=== PATIENT | female | born 1990 | race Caucasian/White ===

== ENCOUNTER → 2017-03-29 16:08 | Outpatient (CLI) | payer BC, SELFPAY ==
[2017-03-29 16:32] LABS: Basophils % 0.4 % (0.1-2.0); Eosinophils # 0.1 K/mm3 (0.0-0.4); Eosinophils % 0.8 % (0.1-12.0); Hematocrit 42.8 % (37.0-47.0); Hemoglobin 14.6 g/dL (12.2-16.2); Lymphocytes # 2.2 K/mm3 (0.7-4.5); Lymphocytes % 21.3 K/mm3 (10-50); Mean Corpuscular HGB Conc 34.2 g/dL (31.8-35.4); Mean Corpuscular Hemoglobin 29.1 pg (27.0-31.2); Mean Platelet Volume 7.3 fl (7.4-10.4); Monocytes # 0.3 K/mm3 (0.1-1.0); Monocytes % 3.3 % (1.7-9.3); Neutrophils # 7.5 K/mm3 (1.8-7.8); Neutrophils % 74.3 % (37.0-80.0); Platelet Count 244 K/mm3 (142-424); Red Blood Count 5.03 M/mm3 (4.20-5.40); Red Cell Distribution Width 12.4 % (11.5-17.5); White Blood Count 10.1 K/mm3 (4.8-10.8)
[2017-03-31 08:26] LABS: HIV Screen 4th Generation wRfx Non Reactive (Non Reactive); Rapid Plasma Reagin Ab Titer Non Reactive (NonRea<1:1)
[2017-03-31 12:14] LABS: Hepatitis B Surface Antigen Negative (Negative); Hepatitis C Antibody <0.1 s/co ratio (0.0-0.9); Rubella Antibodies, IgG 6.96 index (Immune >0.99)
== END ==
PROVIDERS: PCP Family Medicine; Visit Provider Nurse Practitioner Obstetrics & Gynecology
DX: Z34.90 Encounter for supervision of normal pregnancy, unspecified, unspecified trimester (principal)
CPT/HCPCS: 36415; 85025; 86592; 86703; 86762; 86850; 87340; 87380; G0432

== ENCOUNTER → 2017-04-07 14:49 | Outpatient (CLI) | payer BC, SELFPAY ==
--- NOTE | 2017-04-07 15:01 | US_ITS ---
US OB transvaginal HISTORY: Evaluate for early OB ultrasound, evaluate age ITS.REASON: US OB- Dates ORDERING PHYSICIAN: Clarke Covington MD PATIENT AGE: 27 years COMPARISON: None FINDINGS: An intrauterine gestational sac is present with a pole with a crown-rump length of 2.63cm correlating to gestational age of 9w3d. heart tones are present with an FHR of 160 bpm's. Yolk sac is noted. The amnion and chorion have not yet fused. Adnexa: 1.3 cm right ovarian cyst. There is a small amount fluid in the cul-de-sac.. IMPRESSION: Live intrauterine gestation at 9 weeks 3 days as described above. Estimated due date is 11/07/2017
== END ==
PROVIDERS: PCP Family Medicine; Visit Provider Nurse Practitioner Obstetrics & Gynecology
DX: O26.841 Uterine size-date discrepancy, first trimester (principal)
CPT/HCPCS: 76830

== ENCOUNTER → 2017-04-26 16:51 | Outpatient (REF) | payer BC, SELFPAY | LOC: LAB 16:51 | PROVIDERS: Visit Provider Nurse Practitioner Obstetrics & Gynecology | DX: N39.0 Urinary tract infection, site not specified (principal) | CPT/HCPCS: 87086; 87088; 87186 ==

== ENCOUNTER → 2017-06-27 13:40 | Outpatient (CLI) | payer BC, SELFPAY ==
--- NOTE | 2017-06-27 13:40 | US_ITS ---
US OB /maternal detail: INDICATION: ITS.REASON: US OB Complete ORDERING PHYSICIAN: Clarke Covington MD PATIENT AGE: 27 years TECHNIQUE: ultrasound transabdominal scanning. COMPARISON: No previous relevant studies. FINDINGS: Single viable intrauterine gestation. Breech position. Placenta: Posterior placenta grade 1. There is average amount fluid. The cervix appears satisfactory. Closed and measuring 3cm in length. Complete survey performed and was unremarkable on the submitted images as in PACS. No discrete anomalies identified on survey imaging by technologist. Active fetus. Three-vessel cord with satisfactory umbilical cord insertion. 4- chamber heart noted. Survey of brain & ventricles unremarkable. Face and neck survey unremarkable. Diaphragm and chest views unremarkable. Abdomen: Both kidneys noted and unremarkable. Stomach noted and satisfactory. Spine: Survey of the spine satisfactory with no anomalies identified nor imaged. Both arms and legs noted. Amniotic Fluid: Adequate. Maternal adnexa: No significant findings. Measurements: Average ultrasound age 20w5d. Gestational Age 21w2d. Estimated due date by ultrasound age 0911/09/2017. Estimated weight 385 grams. This is 25th percentile BPD = 20w0d OFD = 21w4d HC = 20w2d AC = 21w3d FL = 20w5d Heart Rate = 143 bpm Cerebellum = 20w2d Humerus = 20w5d HC/AC is 1.09 (1.06-1.25). CI is 71% (70-86%). FL/BPD is 73%. FL/AC is 21% (20-24%). IMPRESSION: There is a single live fetus present in breech presentation with an average ultrasound age of 20 weeks and 5 days. No obvious anomalies. All parameters correlate. Please see above for detail.
== END ==
PROVIDERS: PCP Family Medicine; Visit Provider Nurse Practitioner Obstetrics & Gynecology
DX: Z36.0 Encounter for antenatal screening for chromosomal anomalies (principal)
CPT/HCPCS: 76811

== ENCOUNTER 2017-09-07 15:27 | Outpatient (CLI) | payer BC, SELFPAY ==
[2017-09-07 15:35] VITALS: BP 138/86; PULSE 108; RESP 18; TEMP 36.6; O2SAT 99; BMI 38.7
[2017-09-07 15:59] LABS: Microscopic, Urine URINE MICROSCOPIC (MICROSCOPIC)
[2017-09-07 16:01] LABS: Appearance,Urine SL CLOUDY (Clear); Bilirubin,Urine Negative (Negative); Blood, Urine Negative (Negative); Color,Urine YELLOW (Yellow); Glucose,Urine (UA) Negative (Negative); Ketones,Urine Negative (Negative); Leukocyte Esterase,Urine 2+ (Negative); Nitrate,Urine Negative (Negative); Protein,Urine Negative (Negative); Specific Gravity, Urine >= 1.030 (1.005-1.030); Urobilinogen,Urine 0.2 EU/dl (0.2)
[2017-09-07 16:11] LABS: Bacteria,Urine 2+ /lpf
[2017-09-07 16:34] LABS: Fetal Fibronectin (Rapid) Negative (Negative)
--- NOTE | 2017-09-07 17:43 | HMH.ACPN2 ---
Internal Medicine - PN: Subj *Date: 09/07/17 *Time: 17:43 Interval history: She is a 27-year-old 2 para 1 who is 31 and 4 weeks gestational age. She has been treated for a urinary tract infection and came in with dehydration and a few contractions. Exam Vital signs and Labs for Last 24 Hours: Temp Pulse Resp BP Pulse Ox 97.9 F 108 H 18 138/86 99 09/07/17 15:35 09/07/17 15:35 09/07/17 15:35 09/07/17 15:35 09/07/17 15:35 Laboratory Results - last 24 hr 09/07/17 15:40: Urine Color Yellow, Urine Appearance Sl cloudy, Urine pH 6.0, Ur Specific [place] >= 1.030, Urine Protein Negative, Urine Glucose (UA) Negative, Urine Ketones Negative, Urine Blood Negative, Urine Nitrate Negative, Urine Bilirubin Negative, Urine Urobilinogen 0.2, Ur Leukocyte Esterase 2+ A, Urine RBC None, Urine WBC 10-20, Ur Squamous Epith Cells 10-20, Urine Bacteria 2+ 09/07/17 15:48: Fibronectin Negative I & O for Last 24 hours: Intake & Output 09/05/17 09/06/17 09/07/17 09/08/17 11:59 11:59 11:59 11:59 Weight 218 lb 5.992 oz - Constitutional no acute distress Assessment and Plan (1) Urinary tract infection affecting Current visit: Yes Status: Acute Category: Medical Code(s): O23.40 - Unspecified infection of urinary tract in , unspecified trimester (2) False labor before 37 completed weeks of gestation Current visit: Yes Status: Acute Category: Medical Code(s): O47.00 - False labor before 37 completed weeks of gestation, unspecified trimester - Assessment and plan all Dx Assessment and Plan for all problems:: We have given her IV fluids as well as betamethasone because she had some contractions. She will continue with her antibiotics for her urinary tract infection. She will continue to push fluids. She will return tomorrow for a repeat shot of betamethasone. Her cervix is long and closed.
== END 2017-09-07 17:45 | disposition home or self-care (01) ==
LOC: OBOUT 15:29 → OB 15:29
PROVIDERS: PCP Family Medicine; Visit Provider Nurse Practitioner Obstetrics & Gynecology
DX: O26.93 Pregnancy related conditions, unspecified, third trimester (principal); Z3A.31 31 weeks gestation of pregnancy; R10.2 Pelvic and perineal pain; R10.31 Right lower quadrant pain
CPT/HCPCS: 59025; 81001; 82731; 87086; 96360; 96372

== ENCOUNTER 2017-09-08 16:42 | Outpatient (CLI) | payer BC, SELFPAY | END 2017-09-08 17:15 | disposition home or self-care (01) | LOC: OBOUT 16:44 → OB 16:44 | PROVIDERS: PCP Family Medicine; Visit Provider Obstetrics & Gynecology | DX: O26.93 Pregnancy related conditions, unspecified, third trimester (principal); Z3A.31 31 weeks gestation of pregnancy; R10.2 Pelvic and perineal pain; R10.31 Right lower quadrant pain | CPT/HCPCS: 96372 ==

== ENCOUNTER → 2017-09-12 13:31 | Outpatient (REF) | payer BC, SELFPAY | LOC: LAB 13:31 | PROVIDERS: PCP Family Medicine; Visit Provider Obstetrics & Gynecology | DX: N39.0 Urinary tract infection, site not specified (principal); Z34.90 Encounter for supervision of normal pregnancy, unspecified, unspecified trimester | CPT/HCPCS: 87086 ==

== ENCOUNTER → 2017-09-13 09:57 | Outpatient (CLI) | payer BC, SELFPAY ==
[2017-09-13 11:18] LABS: Creatinine,Serum 0.61 mg/dL (0.55-1.02)
[2017-09-13 12:20] LABS: Creatinine,Urine Random 54 mg/dL (20-320); Total Protein,Urine Random 13.3 mg/dL (0.0-11.9)
[2017-09-13 15:38] LABS: Collection Time,Urine 24 hours; Creatinine 24 Hour,Urine 1134 mg/24hr (630-2500); Creatinine Clearance Urine 129.1 mL/min (25-115); Total Protein 24 Hour,Urine 279 mg/24 hr (40-90); Total Volume,Urine 2100 mL (600-1600)
== END ==
PROVIDERS: Visit Provider Obstetrics & Gynecology
DX: Z34.90 Encounter for supervision of normal pregnancy, unspecified, unspecified trimester (principal); N39.0 Urinary tract infection, site not specified
CPT/HCPCS: 82575; 84155

== ENCOUNTER → 2017-09-18 12:36 | Outpatient (CLI) | payer BC, SELFPAY ==
--- NOTE | 2017-09-18 12:50 | US_ITS ---
US OB biophysical profile: Indication: ITS.REASON: US OB BPP Growth- Hypertension during ORDERING PHYSICIAN: Adali Hwang MD PATIENT AGE: 27 years FINDINGS: There is a single live fetus present in breech presentation. heart and body motion noted. breathing motion noted. The following parameters are obtained: Average ultrasound age is 34w0d. Estimated due date by ultrasound is 10/30/2017. Estimated weight is 2483g. This is a 85 percentile based on established due date of 11/05/2017 BPD: 33w4d OFD: 32w2d HC: 32w4d AC: 36w1d FL: 33w2d heart rate: 133 bpm. HC/AC: 0.92 (0.96-1.11) Cephalic index: 80% (70-86%) FL/BPD: 77% (71-87%) FL/AC: 20% (20-24%) Amniotic fluid index: 14 cm Qualitative AFV: 2 breathing movements: 2 Gross body movements: 2 Tone: 2 Biophysical profile score: 8/8 Doppler evaluation of the umbilical artery: SD ratio: 2.7 Resistive index: 0.62 No obvious anomalies evident. Placenta: Posterior Grade 1 Cervix: Appears closed and measures 3 cm IMPRESSION: Single live fetus in presentation with an average ultrasound age of 34 weeks 0 days. Biophysical profile 8/8 Doppler evaluation of the umbilical artery is unremarkable Abdominal circumference is slightly elevated. All other parameters correlate. Please see above for details
== END ==
PROVIDERS: PCP Family Medicine; Visit Provider Obstetrics & Gynecology
DX: O16.9 Unspecified maternal hypertension, unspecified trimester (principal)
CPT/HCPCS: 76816; 76819; 76820

== ENCOUNTER → 2017-09-20 08:19 | Outpatient (CLI) | payer BC, SELFPAY ==
[2017-09-20 10:59] LABS: Basophils % 0.2 % (0.1-2.0); Eosinophils % 0.4 % (0.1-12.0); Hematocrit 35.9 % (37.0-47.0); Hemoglobin 11.7 g/dL (12.2-16.2); Lymphocytes # 1.6 K/mm3 (0.7-4.5); Lymphocytes % 14.5 K/mm3 (10-50); Mean Corpuscular HGB Conc 32.6 g/dL (31.8-35.4); Mean Corpuscular Hemoglobin 27.7 pg (27.0-31.2); Mean Corpuscular Volume 84.8 fl (81-99); Mean Platelet Volume 7.7 fl (7.4-10.4); Monocytes # 0.5 K/mm3 (0.1-1.0); Monocytes % 4.2 % (1.7-9.3); Neutrophils # 8.9 K/mm3 (1.8-7.8); Neutrophils % 80.6 % (37.0-80.0); Platelet Count 214 K/mm3 (142-424); Red Blood Count 4.24 M/mm3 (4.20-5.40); Red Cell Distribution Width 13.9 % (11.5-17.5)
[2017-09-20 11:36] LABS: Alanine Aminotransferase 31 U/L (12-78); Albumin Level 2.5 gm/dL (3.4-5.0); Albumin/Globulin Ratio 0.6 (1.1-1.8); Alkaline Phosphatase 125 U/L (46-116); Anion Gap 13.9 mEq/L (5-15); Bilirubin,Total 0.2 mg/dL (0.2-1.0); Blood Urea Nitrogen 8 mg/dL (7-18); Calcium 8.5 mg/dL (8.5-10.1); Carbon Dioxide 23 mmol/L (21.0-32.0); Chloride 105 mmol/L (98-107); Creatinine,Serum 0.64 mg/dL (0.55-1.02); Estimated Glomerular Filt Rate 112 ml/min (>60); GFR (African American) 136 ML/MIN (>60); Globulin 4.1 gm/dl (1.3-3.2); Glucose 115 mg/dL (74-106); Sodium 138 mmol/L (136-145); Total Protein,Serum 6.6 gm/dL (6.4-8.2)
[2017-09-20 11:38] LABS: Aspartate Amino Transferase 16 U/L (15-37); Potassium 3.9 mmoL/L (3.5-5.1)
[2017-09-20 15:21] LABS: Collection Time,Urine 24 hours; Creatinine 24 Hour,Urine 1242 mg/24hr (630-2500); Creatinine,Urine Random 46 mg/dL (20-320); Total Volume,Urine 2700 mL (600-1600)
[2017-09-20 15:22] LABS: Creatinine Clearance Urine 134.8 mL/min (25-115); Total Protein 24 Hour,Urine 213 mg/24 hr (40-90); Total Protein,Urine Random 7.9 mg/dL (0.0-11.9)
== END ==
PROVIDERS: PCP Family Medicine; Visit Provider Obstetrics & Gynecology
DX: Z34.90 Encounter for supervision of normal pregnancy, unspecified, unspecified trimester (principal)
CPT/HCPCS: 36415; 80053; 82575; 84155; 84550; 85025

== ENCOUNTER 2017-09-28 14:56 | Outpatient (CLI) | payer BC, SELFPAY ==
[2017-09-28 15:08] VITALS: BMI 40.5
[2017-09-28 15:19] VITALS: BP 128/77; PULSE 88; RESP 18; TEMP 36.7; O2SAT 100; BMI 40.5
[2017-09-28 15:39] LABS: Basophils % 0.2 % (0.1-2.0); Eosinophils # 0.1 K/mm3 (0.0-0.4); Eosinophils % 0.4 % (0.1-12.0); Hematocrit 34.8 % (37.0-47.0); Hemoglobin 11.7 g/dL (12.2-16.2); Lymphocytes # 1.6 K/mm3 (0.7-4.5); Lymphocytes % 14.8 K/mm3 (10-50); Mean Corpuscular HGB Conc 33.6 g/dL (31.8-35.4); Mean Corpuscular Hemoglobin 27.8 pg (27.0-31.2); Mean Corpuscular Volume 82.6 fl (81-99); Mean Platelet Volume 7.8 fl (7.4-10.4); Monocytes # 0.4 K/mm3 (0.1-1.0); Monocytes % 3.9 % (1.7-9.3); Neutrophils # 8.7 K/mm3 (1.8-7.8); Neutrophils % 80.7 % (37.0-80.0); Platelet Count 207 K/mm3 (142-424); Red Blood Count 4.21 M/mm3 (4.20-5.40); Red Cell Distribution Width 13.6 % (11.5-17.5); White Blood Count 10.8 K/mm3 (4.8-10.8)
[2017-09-28 15:50] LABS: Alanine Aminotransferase 31 U/L (12-78); Albumin Level 2.4 gm/dL (3.4-5.0); Albumin/Globulin Ratio 0.5 (1.1-1.8); Alkaline Phosphatase 132 U/L (46-116); Anion Gap 13.6 mEq/L (5-15); Aspartate Amino Transferase 11 U/L (15-37); Bilirubin,Total 0.2 mg/dL (0.2-1.0); Blood Urea Nitrogen 6 mg/dL (7-18); Calcium 8.9 mg/dL (8.5-10.1); Carbon Dioxide 24 mmol/L (21.0-32.0); Chloride 105 mmol/L (98-107); Creatinine Clearance Estimated 218 mL/min (0-300); Creatinine,Serum 0.64 mg/dL (0.55-1.02); Estimated Glomerular Filt Rate 112 ml/min (>60); GFR (African American) 136 ML/MIN (>60); Globulin 4.9 gm/dl (1.3-3.2); Glucose 75 mg/dL (74-106); Potassium 3.6 mmoL/L (3.5-5.1); Sodium 139 mmol/L (136-145); Total Protein,Serum 7.3 gm/dL (6.4-8.2); Uric Acid 2.9 mg/dL (2.6-7.2)
[2017-09-28 15:51] LABS: Activated Partial Thrombo Time 31.1 seconds (23.6-34.0); Fibrinogen 500 mg/dL (204-500); INR 0.88 (0.9-1.1); Prothrombin Time 9.1 seconds (9.4-11.8)
[2017-09-28 16:00] LABS: D-Dimer 986 ng/mL (0-400)
== END 2017-09-28 16:55 | disposition home or self-care (01) ==
LOC: OBOUT 14:58 → OB 14:58
PROVIDERS: PCP Family Medicine; Visit Provider Obstetrics & Gynecology
DX: O13.3 Gestational [pregnancy-induced] hypertension without significant proteinuria, third trimester (principal); Z3A.34 34 weeks gestation of pregnancy
CPT/HCPCS: 80048; 80053; 84450; 84460; 84550; 85025; 85378; 85384; 85610; 85730

== ENCOUNTER → 2017-09-29 17:41 | Outpatient (CLI) | payer BC, SELFPAY ==
[2017-09-29 20:28] LABS: Total Protein,Urine Random 12.9 mg/dL (0.0-11.9)
[2017-09-29 20:29] LABS: Total Protein 24 Hour,Urine 335 mg/24 hr (40-90); Total Volume,Urine 2600 mL (600-1600)
== END ==
PROVIDERS: Visit Provider Obstetrics & Gynecology
DX: O13.3 Gestational [pregnancy-induced] hypertension without significant proteinuria, third trimester (principal); Z3A.34 34 weeks gestation of pregnancy
CPT/HCPCS: 84155

== ENCOUNTER → 2017-10-02 16:47 | Outpatient (REF) | payer BC, SELFPAY | LOC: LAB 16:47 | PROVIDERS: Visit Provider Nurse Practitioner Obstetrics & Gynecology | DX: Z34.90 Encounter for supervision of normal pregnancy, unspecified, unspecified trimester (principal) | CPT/HCPCS: 86403 ==

== ENCOUNTER → 2017-10-03 08:07 | Outpatient (CLI) | payer BC, SELFPAY ==
--- NOTE | 2017-10-03 08:08 | US_ITS ---
US OB biophysical profile: Indication: ITS.REASON: US OB BPP GROWTH- Pre-eclampsia during ORDERING PHYSICIAN: Adali Hwang MD PATIENT AGE: 27 years COMPARISON: 09/18/2017 FINDINGS: Single live fetus is present in cephalic presentation. heart tones are present with an FHR 1 22 bpm. motion and breathing activity noted. The following parameters are obtained: Average ultrasound age is 35w2d. Estimated due date by ultrasound is 11/05/2017. Estimated weight is 2589 grams. This is 42nd percentile based on established due date of 11/05/2017 BPD: 35w4d OFD: 35w3d HC: 35w0d AC: 35w1d FL: 35w1d heart rate: 123 bpm. HC/AC: 1.00 (0.93-1.11) Cephalic index: 80% (70-86%) FL/BPD: 78% (71-87%) FL/AC: 22% (20-24%) Amniotic fluid index: 15 cm Qualitative AFV: 2 breathing movements: 2 Gross body movements: 2 Tone: 2 Biophysical profile score: 8/8 Doppler evaluation of the umbilical artery: SD ratio: 2.6 Resistive index: 0.62 No obvious anomalies evident. Placenta: Fundal and posterior in implantation and grade 1 Cervix: Appears closed and measures Measurement IMPRESSION: Intrauterine gestation which is in cephalic presentation with an average ultrasound age of 35 weeks and 2 days. Adequate progression. Biophysical profile 8 of a with average amniotic fluid volume an unremarkable Doppler evaluation of the umbilical artery.
== END ==
PROVIDERS: PCP Family Medicine; Visit Provider Obstetrics & Gynecology
DX: O14.90 Unspecified pre-eclampsia, unspecified trimester (principal)
CPT/HCPCS: 76819

== ENCOUNTER 2017-10-18 04:56 | Inpatient (IN) ==
[2017-10-18 05:45] LABS: Basophils % 0.3 % (0.1-2.0); Eosinophils # 0.1 K/mm3 (0.0-0.4); Eosinophils % 0.5 % (0.1-12.0); Hematocrit 32.9 % (37.0-47.0); Hemoglobin 10.8 g/dL (12.2-16.2); Lymphocytes # 1.8 K/mm3 (0.7-4.5); Lymphocytes % 15.8 K/mm3 (10-50); Mean Corpuscular HGB Conc 32.8 g/dL (31.8-35.4); Mean Corpuscular Hemoglobin 26.7 pg (27.0-31.2); Mean Corpuscular Volume 81.3 fl (81-99); Mean Platelet Volume 8.5 fl (7.4-10.4); Monocytes # 0.6 K/mm3 (0.1-1.0); Neutrophils # 8.8 K/mm3 (1.8-7.8); Neutrophils % 78.4 % (37.0-80.0); Platelet Count 240 K/mm3 (142-424); Red Blood Count 4.05 M/mm3 (4.20-5.40); Red Cell Distribution Width 13.8 % (11.5-17.5); White Blood Count 11.3 K/mm3 (4.8-10.8)
[2017-10-18 06:03] LABS: Anion Gap 14.8 mEq/L (5-15); Calcium 8.8 mg/dL (8.5-10.1); Potassium 3.8 mmoL/L (3.5-5.1); Uric Acid 3.6 mg/dL (2.6-7.2)
[2017-10-18 06:04] LABS: Microscopic, Urine URINE MICROSCOPIC (MICROSCOPIC)
[2017-10-18 06:05] VITALS: BP 125/76
[2017-10-18 06:16] LABS: Appearance,Urine CLEAR (Clear); Bilirubin,Urine Negative (Negative); Blood, Urine Negative (Negative); Color,Urine YELLOW (Yellow); Glucose,Urine (UA) Negative (Negative); Ketones,Urine Negative (Negative); Leukocyte Esterase,Urine 3+ (Negative); Protein,Urine Negative (Negative); Urobilinogen,Urine 0.2 EU/dl (0.2)
[2017-10-18 06:18] LABS: Bacteria,Urine 1+ /lpf
[2017-10-18 06:47] LABS: INR 0.92 (0.9-1.1); Prothrombin Time 9.5 seconds (9.4-11.8)
--- NOTE | 2017-10-18 17:13 | History & Physical Report ---
OB - H&P: HPI Antepartum - History of Present Illness Chief complaint: Induction of Labor History of present illness: 37 3/ with mild preeclampsia Has been treated with labetalol 100mg BID with overall stability of BP 24 hour urine protein increased substantially to over 300mg in a 2 week period of time and she was advised for delivery after 37 wks Antepartum testing of fetus has been reassuring with normal growth, CHRISTIAN, NST, BPP and UA doppler studies - History of Present Criteria for establishing EDC:: LMP confirmed by 1st trimester US care: good care Ultrasounds: normal 1st trimester US, normal mid trimester US Obstetrical complications: preeclampsia [facility] History I have reviewed the patient's past medical history: Yes Medical History: Denies:: Depression, Hypertension, Seizures Other Surgeries: No: Amputation: No Fractures: No - *Social History Smoking Status: Never smoker Alcohol Intake: never Substance Use Type: denies use - Psychiatric History Pschychiatric History:: Denies:: Depression *Family Hx:: Cancer, Diabetes, Heart Attack, Thyroid Disorder, Stroke, Kidney Disease, Hypertension, Hyperlipidemia Para: 1 Review of Systems - Review of Systems Review of systems:: pertinent systems reviewed and negative unless documented below - Constitutional Denies chills, Denies fever(s) - Eyes Denies blurry vision, Denies double vision, Denies floaters - ENT Denies bleeding gums, Denies headache(s) - *Cardiovascular Denies chest pain, Denies shortness of breath, Denies fast heart rate - *Respiratory Denies cough, Denies shortness of breath - *Gastrointestinal Denies abdominal pain, Denies nausea, Denies vomiting - *Genitourinary Denies abnormal vaginal bleeding - *Musculoskeletal Denies back pain - Integumentary/Breasts Denies lesions, Denies rash - *Neurologic Denies headache(s), Denies numbness, Denies other visual disturbances, Denies seizure-like activity - Psychiatric Denies anxiety, Denies depression - Hematologic/Lymphatic Denies easy bleeding, Denies easy bruising Meds Home Medications Medication Instructions Recorded Confirmed Type Ferrous Sulfate 325 mg PO ONCE 09/28/17 10/18/17 History Vit Calc,Iron,Folic [Kpn] 1 tab PO QHS 09/28/17 10/18/17 History Labetalol HCl [Normodyne 100mg 100 mg PO BID 10/18/17 10/18/17 History tablet] Allergies Allergy/AdvReac Type Severity Reaction Status Date / Time Sulfa (Sulfonamide Allergy Intermediate I-HIVES Verified 10/17/17 09:53 Antibiotics) OB - H&P: Exam - Physical Exam Vital signs: Temp Pulse Resp BP Pulse Ox 98.1 F 116 H 18 125/76 97 10/18/17 06:02 10/18/17 06:02 10/18/17 06:02 10/18/17 06:02 10/18/17 06:02 - Constitutional no acute distress, cooperative - Routine HEENT Exam Head: Present: normocephalic, atraumatic Eye: Absent: conjunctival icterus, scleral injection - Routine Respiratory Exam Present: CTA bilaterally. Absent: respiratory distress - Routine Cardiovascular Exam Present: RRR. Absent: tachycardia - Routine Abdominal Exam Present: soft. Absent: tenderness, distended, guarding - Routine Exam External: Present: normal urethra appearance. Absent: vulvar erythema Perineal: Absent: erythema, tenderness Comments: Cervix 3/50/-2 - Routine Extremities Exam Present: edema (1+) - Routine Skin Exam Present: dry, warm. Absent: rash - Routine Neurological Exam Present: alert, oriented X3, normal reflexes - Routine Psychiatric Exam Absent: depressed, anxious - Detailed Labor and Delivery Exam Dilation (cm): 3 Effacement (%): 50 Cervix position: mid station: -2 Consistency: soft Membranes: artificially ruptured (AROM with copious clear fluid) Amniotic fluid: clear Baseline heart rate: 140 monitor accelerations: Present monitor decelerations: None intermediate school teacher variability: Moderate (11-25) Contraction frequency (min): 3 Contraction intensity: Mild OB - Results - Labs Labs: Short CBC 10/18/17 Range/Units 05:30 WBC 11.3 H (4.8-10.8) K/mm3 Hgb 10.8 L (12.2-16.2) g/dL Hct 32.9 L (37.0-47.0) % Plt Count 240 (142-424) K/mm3 BMP 10/18/17 05:30 Sodium 139 Potassium 3.8 Chloride 106 Carbon Dioxide 22 BUN 10 Creatinine 0.83 Glucose 113 H Calcium 8.8 Liver Function 10/18/17 Range/Units 05:30 AST 14 L (15-37) U/L ALT 48 (12-78) U/L Urine 10/18/17 Range/Units 05:10 Urine Color Yellow (Yellow) Urine Appearance Clear (Clear) Urine pH 6.0 (5.0-8.5) Ur Specific [place] 1.010 (1.005-1.030) Urine Protein Negative (Negative) Urine Glucose (UA) Negative (Negative) - Imaging and Cardiology nst Status: image reviewed by me (baseline 140, moderate variability, reactive. Category 1 heart tracing.) OB - A/P Antepartum (1) with 37 weeks completed gestation Current visit: Yes Status: Acute (2) Encounter for induction of labor Current visit: Yes Status: Acute (3) Mild pre-eclampsia Problem details: 09/29 24hr urine: 335mg protein Current visit: No Status: Acute (4) Hypertension complicating Current visit: No Status: Acute (5) Obesity affecting in third trimester Current visit: Yes Status: Acute (6) Anemia affecting in third trimester Problem details: hgb 11.7 Current visit: No Status: Acute - Additional Plan Additional Information:: Induction of labor Pitocin augmentation Continuous monitoring Declines epidural at present time with plans for NCB, but may receive epi at any time per request Continue monitoring BP
--- NOTE | 2017-10-18 17:35 | Procedure Note ---
- Delivery Note Delivery Date:: 10/18/17 Delivery Time:: 17:27 Anesthesia Type: None Was labor medically induced?: Yes Induction method: per pitocin protocol Gestational age (weeks): 37 Infant delivered prior to 39 weeks?: Yes Justification for early elective delivery:: Pre-eclampsia Gender: Male at 1 minute: 8 at 5 minutes: 9 LAC or MLE?: LAC Delivery Procedure:: Spontaneous vaginal delivery of vigorous liveborn male over intact perineum. Apgars 8 & 9 Delivery uncomplicated, with no nuchal cord or shoulder dystocia noted No other complications Infant placed immediately on maternal abdomen for nursing assessment & SIMEON immediately after umbilical cord clamped/cut Placenta spontaneously expressed and examined; noted to be complete/intact Vulva, vagina, and cervix inspected; 2nd degree laceration noted Repair with vicryl suture in layers/standard fashion EBL: 300cc All sponge/needle/instrument counts correct at conclusion of procedure Disposition: Mom/baby stable to recovery in LDRP Laceration:: vaginal (1st degree) Placental Delivery Description: Spontaneous
[2017-10-19 07:10] LABS: Hematocrit 28.7 % (37.0-47.0); Hemoglobin 9.6 g/dL (12.2-16.2)
--- NOTE | 2017-10-20 13:56 | Progress Note ---
Internal Medicine - PN: Subj *Date: 10/19/17 *Time: 12:30 Interval history: POD #1 No complaints Ambulating, voiding and tolerating reg diet lochia appropriate Exam Vital signs and Labs for Last 24 Hours: Temp Pulse Resp BP Pulse Ox 98.1 F 116 H 18 125/76 97 10/18/17 06:02 10/18/17 06:02 10/18/17 06:02 10/18/17 06:02 10/18/17 06:02 I & O for Last 24 hours: Intake & Output 10/18/17 10/19/17 10/20/17 10/21/17 11:59 11:59 11:59 11:59 Weight 236 lb 4 oz Microbiology Reports for the Last 24 Hours: Microbiology 10/18/17 05:10 Urine,Clean Catch Urine Culture - Final NO GROWTH AFTER 48 HOURS - Constitutional no acute distress - *Routine Respiratory Exam Absent: decreased breath sounds, respiratory distress - *Routine Abdominal Exam Present: soft. Absent: tenderness, distended - Routine Psychiatric Exam Present: normal affect. Absent: depressed, anxious Assessment and Plan (1) with 37 weeks completed gestation Current visit: Yes Status: Acute Category: Medical Code(s): Z3A.37 - 37 weeks gestation of (2) Encounter for induction of labor Current visit: Yes Status: Acute Category: Medical Code(s): Z34.90 - Encounter for supervision of normal , unspecified, unspecified trimester (3) Mild pre-eclampsia Problem details: 09/29 24hr urine: 335mg protein Current visit: No Status: Acute Qualifiers: Trimester: third trimester Qualified Code(s): O14.03 - Mild to moderate pre-eclampsia, third trimester Category: Medical Code(s): O14.00 - Mild to moderate pre-eclampsia, unspecified trimester (4) Hypertension complicating Current visit: No Status: Acute Category: Medical Code(s): O16.9 - Unspecified maternal hypertension, unspecified trimester (5) Obesity affecting in third trimester Current visit: Yes Status: Acute Category: Medical Code(s): O99.213 - Obesity complicating , third trimester (6) Anemia affecting in third trimester Problem details: hgb 11.7 Current visit: No Status: Acute Category: Medical Code(s): O99.013 - Anemia complicating , third trimester (7) Normal vaginal delivery Current visit: Yes Status: Acute Category: Medical Code(s): O80 - Encounter for full-term uncomplicated delivery - Assessment and plan all Dx Assessment and Plan for all problems:: Routine care anticipate discharge tomorrow
--- NOTE | 2017-10-20 14:09 | Discharge Summary ---
General - General Admission date:: 10/18/17 Discharge date: 10/20/17 HPI HPI: IOL for preeclampsia at 37 3/7 weeks Normal course normal without complications Discharged home on PPD #2 Hospital Course Hospital Course: per HPI Objective Vital signs: Temp Pulse Resp BP Pulse Ox 98.1 F 116 H 18 125/76 97 10/18/17 06:02 10/18/17 06:02 10/18/17 06:02 10/18/17 06:02 10/18/17 06:02 no acute distress - *Routine Respiratory Exam Absent: respiratory distress - *Routine Abdominal Exam Present: soft. Absent: tenderness, distended - *Routine Skin Exam Absent: rash - Routine Psychiatric Exam Present: normal affect. Absent: depressed, anxious DS: Diagnosis - Discharge Diagnosis (1) with 37 weeks completed gestation Status: Acute (2) Encounter for induction of labor Status: Acute (3) Mild pre-eclampsia Status: Acute Problem details: 09/29 24hr urine: 335mg protein (4) Hypertension complicating Status: Acute (5) Obesity affecting in third trimester Status: Acute (6) Anemia affecting in third trimester Status: Acute Problem details: hgb 11.7 (7) Normal vaginal delivery Status: Acute Discharge Plan - Patient Discharge Instructions ACTIVITY: Continue current activity DIET: regular diet Patient Instructions: Depression, Hemorrhage, Post Discharge Instructions - Follow up Plan Disposition: Home, Self-Detention Medications: Home Medications Medication Instructions Recorded Confirmed Type Ferrous Sulfate 325 mg PO DAILY 09/28/17 10/19/17 History Vit Calc,Iron,Folic [Kpn] 1 tab PO HS 09/28/17 10/19/17 History Labetalol HCl [Normodyne 100mg 100 mg PO BID 10/18/17 10/18/17 History tablet] Prescriptions/Medication Reconciliation: New Ibuprofen [Motrin 400mg tablet] 800 mg PO Q4HP PRN tablet PRN Reason: Mild To Moderate Pain Continue Ferrous Sulfate 325 mg PO DAILY Vit Calc,Iron,Folic [Kpn] 1 tab PO HS Discontinued Labetalol HCl [Normodyne 100mg tablet] 100 mg PO BID
== END 2017-10-20 15:10 | disposition home or self-care (01) ==
LOC: OB 05:02
PROVIDERS: ADMIT Obstetrics & Gynecology; ATTEND Obstetrics & Gynecology

== ENCOUNTER → 2021-05-24 10:54 | Outpatient (CLI) | payer BC, SELFPAY ==
--- NOTE | 2021-05-24 10:59 | XR_ITS ---
FINAL REPORT CLINICAL HISTORY: RIGHT KNEE PAIN, popping sound FINDINGS: 3 views of the right knee were obtained. There are postoperative changes from prior anterior cruciate ligament repair. There is no acute fracture or dislocation. There is mild narrowing of the medial compartment joint space. There is no soft tissue abnormality. IMPRESSION: No acute process. Reviewed, Interpreted and Dictated by Jack Carlson MD Transcribed by Jose Alberto Curry Authenticated by Jack Carlson MD on 05/24/2021 12:52:36 PM [facility]
== END ==
PROVIDERS: PCP Family Medicine; Visit Provider Nurse Practitioner Family
DX: M25.561 Pain in right knee (principal)
CPT/HCPCS: 73562

== ENCOUNTER → 2021-05-31 09:32 | Outpatient (CLI) | payer BC, SELFPAY ==
--- NOTE | 2021-05-31 09:37 | MR_ITS ---
FINAL REPORT CLINICAL HISTORY: KNEE PAIN, RT. prior hx 4 knee surgeries last one 2014. knee popped x1wk ago. knee instability. anterior knee pain. FINDINGS: Multiplanar MR imaging of the right knee was performed without contrast. There is artifact from extensive postoperative changes which obscures much of the detail. There is been prior partial medial meniscectomy without convincing tear. ACL graft appears intact. The medial collateral ligament and lateral ligamentous complex are intact. The patellar and quadriceps tendons are intact. There is no evidence of fracture. There are postoperative changes of the patella. No focal abnormality is identified of the articular cartilage. A small joint effusion is seen. The musculature is intact. No soft tissue mass or cyst is identified. IMPRESSION: Extensive postoperative changes without convincing acute injury. Reviewed, Interpreted and Dictated by Greyson Doran III, MD Transcribed by Joseline Calvin Authenticated by Greyson Doran III, MD on 05/31/2021 11:41:43 AM [facility]
== END ==
PROVIDERS: PCP Family Medicine; Visit Provider Nurse Practitioner Family
DX: M25.561 Pain in right knee (principal)
CPT/HCPCS: 73721

== ENCOUNTER 2021-07-14 16:00 | Outpatient (RCR) | payer BC, SELFPAY | END 2021-08-26 14:52 | disposition home or self-care (01) | LOC: PT.CARL 16:00 | PROVIDERS: PCP Family Medicine; Visit Provider Orthopaedic Surgery | DX: M25.561 Pain in right knee (principal) | CPT/HCPCS: 97010; 97014; 97033; 97110; 97112; 97163; 97530; G0283 ==

== ENCOUNTER → 2022-03-28 14:49 | Outpatient (CLI) | payer BC, SELFPAY ==
--- NOTE | 2022-03-28 14:50 | US_ITS ---
FINAL REPORT TECHNIQUE: Sonographic images of the pelvis were obtained transvaginally. CLINICAL HISTORY: post coital bleeding FINDINGS: The uterus is anteverted and retroflexed. It measures 8.2 x 4.8 x 5.5 cm. The endometrial stripe measures 8 mm which is within normal limits. The myometrium is homogeneous. There is a small nabothian cyst in the cervix. The right ovary measures 3.8 x 2.9 x 1.9 cm. It is normal in appearance. The left ovary measures 3.9 x 1.7 x 1.5 cm. It is normal in appearance. Color imaging to the ovaries is within normal limits. There is no free fluid. IMPRESSION: Normal sonographic appearance to the uterus and ovaries for age. Reviewed, Interpreted and Dictated by Yulissa Kuo MD Transcribed by Marianela Loredo Authenticated and . [facility]
== END ==
PROVIDERS: PCP Family Medicine; Visit Provider Obstetrics & Gynecology
DX: N93.0 Postcoital and contact bleeding (principal)
CPT/HCPCS: 76830

== ENCOUNTER 2024-05-28 10:12 | Outpatient (CLI) | payer BC, SELFPAY | END 2024-05-28 23:59 | disposition home or self-care (01) | LOC: LAB.DROPOF 05-29 10:12 | PROVIDERS: PCP Nurse Practitioner Family; Visit Provider Nurse Practitioner Family | DX: N39.0 Urinary tract infection, site not specified (principal); B96.29 Other Escherichia coli [E. coli] as the cause of diseases classified elsewhere | CPT/HCPCS: 87086; 87088; 87186 ==

== ENCOUNTER 2024-10-29 15:32 | Outpatient (CLI) | payer BC, SELFPAY ==
--- OUTSIDE RECORDS SUMMARY | 2024-10-29 15:34 | XMS_ITS | Clinical Summary ---
Author Organization [facility] Address [address] [place] [id number] Phone [email or web address] Care Team Providers Care Prosthetic Makeup Designer Name Role Phone Provider, No Primary Care Provider Unavailabl e Allergies Active Allergy Reactions Criticality Noted Date Comments Amoxicillin Rash Low 06/09/2021 Sulfa Antibiotics 09/11/2017 Medications No known medications Active Problems Problem Noted Date Diagnosed Date Follow-up examination, following other surgery 0 06/12/2015 Overview (07/12/2017): Health examination of defined subpopulation 07/15 Overview (07/12/2017): Social History Tobacco Use Types Packs/Day Years Used Date Smoking Tobacco: Never Smokeless Tobacco: Never Intimate Partner Violence Answer Date R ecorded Insults You Not on file 05/26/2020 Threatens You Not on file 05/26/2020 Screams at You Not on file 05/26/2020 Physically Hurt Not on file 05/26/2020 Intimate Partner Violence Score Not on file 05/26/2020 Depression Answer Date Recorded PHQ Total Score 0 11/27/2021 Stress Answer Date Recorded Stress in your Life Not on file 12/18/2023 Dealing with Stress 3 12/18/2023 Comments Unknown Sex and Gender Information Value Date Recorded Sex Assigned at Not on file Legal Sex Female 7:51 AM CDT Gender Identity Not on file Sexual Orientation Not on file Last Filed Vital Signs Vital Sign Reading Time Taken Comments Blood Pressure 130/82 06/11/2021 5:38 AM EDT Pulse 79 06/11/2021 5:38 AM EDT Temperature 36.9 C (98.5 F) 06/11/2021 5:38 AM EDT Respiratory Rate 14 06/11/2021 5:38 AM EDT Oxygen Saturation 98% 06/11/2021 5:38 AM EDT Inhaled Oxygen Concentration - - Weight 95.3 kg (210 lb) 03/28/2018 11:46 AM EST Height 162.6 cm (5' 4 ) 03/28/2018 11:46 AM EST Body Mass Index 36.05 03/28/2018 11:46 AM EST Plan of Treatment Health Maintenance Due Date Last Done Comments Cervical Cancer Screening Combo 1991 Dental Cleaning/Exam 1991 HIV Screening 1991 HPV / Cotest 1991 Hepatitis C Screening 1991 Pap Testing 1991 HPV Immunization (1 - 2-dose series) 2002 Annual Preventive Exam 2009 Hep B Infection Screening - Triple Screen 2009 Hepatitis B Immunization (1 of 3 - 19+ 3-dose series) 2010 Tetanus Diphtheria and Pertu ssis Immunization (1 - Tdap) 2010 Covid-19 Immunization (1 - 2 024-25 season) 2024 Influenza Immunization (#1) 2024 HIB Immunization Aged Out No longer e ligible based on patient's age to complete this topic Hepatitis A Immunization Aged Out No longer eligible based on patient's age to complete this topic Pneumococcal: Ped (0 to 5 Yr s) and At-Risk Member (6 to 64 Yrs) Aged Out No longer e ligible based on patient's age to complete this topic Polio Immunization Aged Out No longer eligible based on patient's age to complete this topic Varicella Immunization Aged Out No lo nger eligible based on patient's age to complete this topic Insurance KUL[place]EP [place] 5 Care Teams Prosthetic Makeup Designer Relationship Specialty Start Date End Date Provider, [place] [address] PCP - General Pool Coordinator 06/09/21
--- OUTSIDE RECORDS SUMMARY | 2024-10-29 15:35 | XMS_ITS | Patient Health Record ---
[facility] [address] [facility] [address] [facility] [address] [place] [id number] Care Team Providers Care Physical Therapy Manager Name Role Phone Humberto Patton Primary Care Provider Allergies Allergen (clinical drug ingredient) Drug/Non Drug Allergy documented on EMR Reaction Allergy Type Onset Date Status Substance with sulfonamide structure and antibacterial mechanism of action (substance) Sulfa Antibiotics Unknown Drug Allergy Active Medications Medication SIG (Take, Route, Frequency, Duration) Notes Start Date End Date Status Ventolin HFA 108 (90 Base) MCG/ACT 2 puff(s) inhaled 4 times a day; Duration: 30 day(s) 12/22/2018 Not-Taking Immunizations Vaccine Route Administration Date Status Comme nts xGardasil IM Intramuscular 08/24/2006 Administered xGardasil IM Intramuscular 12/11/2006 Administered xGardasil IM Intramuscular 05/12/2007 Administered tuberculin (ppd) ID Intradermal 07/10/2009 Administered Plan Of Treatment No Information Insurance Providers Payer Name Payer Address Payer Phone Subscriber Number Group Number Insured Name Patient Relationship to Insured Coverage Start Date Coverage End Date [employer] [address] [place] [address] [id number] MARCELINO LIM Self - patient is the insured Medications Administered Medication Instructions Date of Administration Dosage Notes Rocephin 500 mg 06/10/2006 1000 mg Medical (General) History Medical History History ICD Code UTI interstitial cystitis Surgical History Surgery Date(Month/Year) urethral dilatations Hospitalization History Reason Date(Month/Year) UTI 02/08/06-02/11 child 10/31/2013
--- OUTSIDE RECORDS SUMMARY | 2024-10-29 15:35 | XMS_ITS | Clinical Summary ---
Author Organization Healthcare Address [address] [place] [address] Care Team Providers Care Bridge Expert Name Role Phone Humberto Patton MD Primary Care Provider + [phone] Allergies Active Allergy Reactions Criticality Noted Date Comments Amoxicillin Rash Low 06/09/2021 Sulfa Drugs Unknown - Patient st ates they do not know rxn details Low 12/22/2014 Medications No known medications Family History Medical History Relation Name Comments Heart Problem Father Heart Problem Mother Relation Name Status Comments Father Mother Social History Tobacco Use Types Packs/Day Years Used Date Smoking Tobacco: Never Comments Unknown Sex and Gender Information Value Date Recorded Sex Assigned at Not on file Legal Sex Female 7:34 PM EDT Gender Identity Not on file Sexual Orientation Not on file Last Filed Vital Signs Vital Sign Reading Time Taken Comments Blood Pressure 137/87 06/07/2021 10:10 AM EDT Pulse 76 08/09/2021 9:31 AM EDT Temperature - - Respiratory Rate - - Oxygen Saturation 99% 08/09/2021 9:31 AM EDT Inhaled Oxygen Concentration - - Weight 86.2 kg (190 lb) 08/09/2021 9:31 AM EDT Height 160 cm (5' 3 ) 08/09/2021 9:31 AM EDT Body Mass Index 33.66 08/09/2021 9:31 AM EDT Plan of Treatment Health Maintenance Due Date Last Done Comments [facility]-Depression Screening 1991 [facility]-/Child/Adol SDOH Screenings 1991 [facility]-Varicella Vaccines (1 of 2 - 13+ 2-dose series) 2004 [facility]- SDOH Screenings 2009 [facility]-Adult SDOH Screenings 2009 [facility]-DTaP,Tdap,and Td Vaccine s (1 - Tdap) 2010 [facility]-Hepatitis B Vaccines (1 of 3 - 19+ 3-dose series) 2010 [facility]-Pap Smear 2012 HPV Vaccines (1 - 3-dose SCD M series) 2018 [facility]-Cervical Cancer Screening 2021 [facility]-HPV/Cotest 2021 [id number] Vaccine (1 - 20 24-25 season) 2024 [facility]-Influenza Vaccine (#1) 2024 [facility]-Zoster Vaccines (1 of 2) 2041 [facility]-HIB Vaccines Aged Out No longer e ligible based on patient's age to complete this topic [facility]-Hepatitis A Vaccines Aged Out No longer eligible based on patient's age to complete this topic [facility]-IPV Vaccines Aged Out No longer e ligible based on patient's age to complete this topic [facility]-Pneumococcal Vaccine: Pediatrics (0 to 5 Years) and At-Risk Patients (6 to 49 Years) Aged Out No long er eligible based on patient's age to complete this topic [facility]-Rotavirus Vaccines Aged Out No lo nger eligible based on patient's age to complete this topic Insurance [employer] Care Teams Bridge Expert Relationship Specialty Start Date End Date Humberto Patton MD [address] [facility] [address] [id number] [facility] - General 06/26/20
== END 2024-10-29 23:59 | disposition home or self-care (01) ==
LOC: LAB 15:32
PROVIDERS: PCP Family Medicine; Visit Provider Obstetrics & Gynecology
DX: Z34.90 Encounter for supervision of normal pregnancy, unspecified, unspecified trimester (principal); N92.6 Irregular menstruation, unspecified; Z3A.00 Weeks of gestation of pregnancy not specified
CPT/HCPCS: 36415; 84144; 84702

== ENCOUNTER 2024-11-12 14:00 | Outpatient (CLI) | payer BC, SELFPAY ==
--- OUTSIDE RECORDS SUMMARY | 2024-11-13 10:02 | XMS_ITS | Patient Health Record ---
[facility] Address [address] [facility] [address] [facility] [address] [place] [id number] Care Team Providers Care Lab Tester Name Role Phone Humberto Patton Primary Care [...] Vaccine Route Administration Date Status Comme nts tuberculin (ppd) ID Intradermal 07/10/2009 Administered xGardasil IM Intramuscular 08/24/2006 Administered xGardasil IM Intramuscular 12/11/2006 Administered xGardasil IM Intramuscular 05/12/2007 Administered Plan Of Treatment No Information Insurance Providers Payer Name Payer Address Payer Phone Subscriber Number Group Number Insured Name Patient Relationship to Insured Coverage Start Date Coverage End Date [employer] [address] [place] [address] [id number] MARCELINO LIM Self - patient is the insured Medications Administered Medication Instructions Date of Administration Dosage Notes Rocephin 500 mg 06/10/2006 1000 mg Medical (General) History Medical History History ICD Code UTI interstitial cystitis Surgical History Surgery Date(Month/Year) urethral dilatations Hospitalization History Reason Date(Month/Year) UTI 02/08/06-02/11 child 10/31/2013
--- OUTSIDE RECORDS SUMMARY | 2024-11-13 10:02 | XMS_ITS | Clinical Summary ---
Author Organization [facility] Address [address] [place] [address] Care Team Providers Care Bulk Sealer Name Role Phone Humberto Patton MD Primary Care Provider + [phone] Allergies Active Allergy Reactions Criticality Noted Date [...] 2018 [facility]-Cervical Cancer Screening 2021 [facility]-HPV/Cotest 2021 [id number] Vaccine (1 - 20 24-25 season) 2024 [...] complete this topic Insurance KUL[employer]EP Care Teams Bulk Sealer Relationship Specialty Start Date End Date Humberto Patton MD [address] [facility] [address] [place] [id number] [facility] - General 06/26/20
--- OUTSIDE RECORDS SUMMARY | 2024-11-13 10:02 | XMS_ITS | Clinical Summary ---
Author Organization [facility] Address [address] [place] [id number] Phone [email or web address] Care Team Providers Care Residential Manager Name Role Phone Provider, No Primary Care [...] on patient's age to complete this topic Pneumococcal Immunization Aged Out No longer eligible based on patient's age to complete this topic Polio Immunization Aged Out No longer eligible based on patient's age to complete this topic Varicella Immunization Aged Out No lo nger eligible based on patient's age to complete this topic Insurance [facility] [place] [address] Care Teams Residential Manager Relationship Specialty Start Date End Date Provider, [place] [address] PCP - General Numerical Control Drill Press Operator 06/09/21
== END 2024-11-12 23:59 ==
LOC: LAB.DROPOF 11-13 09:43
PROVIDERS: PCP Obstetrics & Gynecology; Visit Provider Obstetrics & Gynecology
DX: O09.291 Supervision of pregnancy with other poor reproductive or obstetric history, first trimester (principal); Z3A.00 Weeks of gestation of pregnancy not specified
CPT/HCPCS: 82570; 84156; 87086; 87088

== ENCOUNTER 2024-11-22 08:16 | Outpatient (CLI) | payer BC, SELFPAY ==
--- OUTSIDE RECORDS SUMMARY | 2024-11-22 08:19 | XMS_ITS | Clinical Summary ---
Author Organization Healthcare Address [address] [place] [address] Care Team Providers Care Cereal Maker Name Role Phone Humberto Patton MD Primary Care Provider + [phone] Allergies Active Allergy Reactions Criticality Noted Date [...] Date Last Done Comments [facility]-Depression Screening 1991 [facility]-Infant/Child/Adol SDOH Screenings 1991 [facility]-Varicella Vaccines (1 of 2 - 13+ 2-dose series) 2004 [facility]- SDOH Screenings 2009 [facility]-Adult SDOH Screenings 2009 [facility]-DTaP,Tdap,and Td Vaccine s (1 - Tdap) 2010 [facility]-Hepatitis B Vaccines (1 of 3 - 19+ 3-dose series) 2010 [facility]-Pap Smear 2012 HPV Vaccines (1 - 3-dose SCD M series) 2018 [facility]-Cervical Cancer Screening 2021 [facility]-HPV/Cotest 2021 [id number] Vaccine (1 - 20 24-25 season) 2024 [...] complete this topic Insurance K[employer]EP Care Teams Cereal Maker Relationship Specialty Start Date End Date Humberto Patton MD [address] [facility] [address] [address] [id number] [facility] - General 06/26/20
[2024-11-22 08:47] LABS: Hematocrit 37.5 % (37.0-47.0); Hemoglobin 12.1 g/dL (12.2-16.2); Immature Granulocytes % 0.4 %; Mean Corpuscular HGB Conc 32.3 g/dL (31.8-35.4); Mean Corpuscular Hemoglobin 26.7 pg (27.0-31.2); Mean Corpuscular Volume 82.8 fl (81-99); Nucleated Red Blood Cells % 0 %; Platelet Count 252 K/mm3 (142-424); Red Blood Count 4.53 M/mm3 (4.20-5.40); Red Cell Distribution Width-SD 41.5 fL; White Blood Count 7.9 K/mm3 (4.8-10.8)
[2024-11-22 09:29] LABS: Albumin Level 4.0 g/dl (3.5-5.0); Chloride 102 mmol/L (98-107); Potassium 4.0 mmoL/L (3.5-5.1); Sodium 138 mmol/L (136-145)
[2024-11-22 09:32] LABS: Alanine Aminotransferase 15 U/L (12-78); Alkaline Phosphatase 76 U/L (38-126); Aspartate Amino Transferase 16 U/L (14-36); Bilirubin,Total 0.3 mg/dl (0.2-1.3); Carbon Dioxide 27 mmol/L (22.0-30.0)
[2024-11-22 09:33] LABS: Albumin/Globulin Ratio 1.1 (1.1-1.8); Calcium 9.8 mg/dl (8.4-10.2); Globulin 3.5 g/dL (1.3-3.2); Glucose 87 mg/dl (74-100); Total Protein,Serum 7.5 g/dl (6.3-8.2)
[2024-11-22 09:37] LABS: Anion Gap 15.1 mEq/L (5-15); Blood Urea Nitrogen 8 mg/dl (7-17); Creatinine,Serum 0.70 mg/dl (0.52-1.04); Estimated Glomerular Filt Rate 96 ml/min (>60); GFR (African American) 117 ML/MIN (>60)
[2024-11-22 15:14] LABS: RPR W/RFX Titers Nonreactive (Nonreactive)
[2024-11-22 19:42] LABS: Hepatitis C Ab Qual. W/ RFX NEGATIVE (Negative)
[2024-11-23 07:40] LABS: Hepatitis B Surface Antigen Negative (Negative)
[2024-11-23 08:13] LABS: Rubella Antibodies, IgG 4.70 index (Immune >0.99)
== END 2024-11-22 23:59 | disposition home or self-care (01) ==
LOC: LAB 08:17
PROVIDERS: PCP Family Medicine; Visit Provider Obstetrics & Gynecology
DX: O09.299 Supervision of pregnancy with other poor reproductive or obstetric history, unspecified trimester (principal); Z3A.00 Weeks of gestation of pregnancy not specified
CPT/HCPCS: 36415; 80053; 85025; 86592; 86762; 86803; 86850; 87340; 87389

== ENCOUNTER 2025-02-10 12:44 | Outpatient (CLI) | payer BC, SELFPAY ==
--- OUTSIDE RECORDS SUMMARY | 2025-02-10 12:50 | XMS_ITS | Clinical Summary ---
Author Organization [facility] Address [address] [place] [address] Care Team Providers Care Geophysics Scientist Name Role Phone Humberto Patton MD Primary Care Provider [phone] Allergies Active Allergy Reactions Criticality Noted Date [...] 19+ 3-dose series) 2010 [facility]-Pap Smear 2012 [facility]-Cervical Cancer Screening 2021 [facility]-HPV/Cotest 2021 [id number] Vaccine (1 - 20 25-26 season) 2024 [facility]-Influenza Vaccine (#1) 2024 [facility]-Zoster Vaccines (1 of 2) 2041 HPV Vaccines (No Doses Required) Completed [facility]-HIB Vaccines Aged Out No longer e [...] patient's age to complete this topic Insurance [facility] Care Teams Geophysics Scientist Relationship Specialty [place] [id number] PCP - General 06/26/20
--- OUTSIDE RECORDS SUMMARY | 2025-02-10 12:50 | XMS_ITS | Encounter Summary ---
Author Organization [facility] Address [address] [place] [phone] Phone [email or web address] Care Team Providers Care Franchise Manager Name Role Phone Provider, No Primary Care Provider Unavailabl e Encounter Details Date Type Department Care Team (Late st Contact Info) Description 12/17/2024 Telephone [facility] [address] [place] [address] Vero Mortensen MA [address] [place] [address] Social History Tobacco Use Types Packs/Day Years [...] file 12/18/2023 Dealing with Stress 3 12/18/2023 Estimated Date of Delivery Comme nts Yes 06/26/2025 Sex and Gender Information Value Date Recorded Sex Assigned at Not on file Legal Sex Female 7:51 AM CDT Gender Identity Not on file Sexual Orientation Not on file documented as of this encounter Miscellaneous Notes * Telephone Encounter - Vero Mortensen MA - 12/17/2024 5:54 AM EST TMs GL- Humberto Almazan called concerning TMs restrictions of Push/Pull, discussed with Jonathan Ferguson RN and reported back to GL that TM had the rest of this week 12.16.2024 to have no push/pull restriction then beginning next week the 2nd trimester restrictions of NO PUSH/PULL will take affect. 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
--- OUTSIDE RECORDS SUMMARY | 2025-02-10 12:50 | XMS_ITS | Clinical Summary ---
Author Organization [facility] Address [address] [place] [phone] Phone [email or web address] Care Team Providers Care Automotive Drivability Technician Name Role Phone Provider, No Primary Care Provider Unavailabl e Allergies Active Allergy Reactions Criticality Noted Date Comments Amoxicillin Rash Low 06/09/2021 Sulfa Antibiotics 09/11/2017 Medications Progesterone 200 MG capsule TAKE 1 CAPSULE VAGINALLY AT BEDTIME NIGHTLY 5 Active Active Problems Problem Noted Date Diagnosed Date Follow-up examination, following other surgery 0 06/12/2015 Overview (07/12/2017): Health examination of defined subpopulation 07/15 Overview (07/12/2017): Estimated Date of Delivery Comme nts Yes 06/26/2025 Encounters Date Type Department Care Team Description 12/17/2024 Telephone [facility] [address] [place], [place] [address] [address] Vero Mortensen MA 11/13/2024 11:00 AM EDT [facility] [place] [address] [address] [place] [address] Mya Suarez RN 3, currently (Primary Dx) from Last 3 Months Social History Tobacco Use Types Packs/Day Years [...] Sign Reading Time Taken Comments Blood Pressure 138/87 11/13/2024 11:14 AM EDT Pulse 90 11/13/2024 10:55 AM EDT Temperature 36.9 C (98.5 F) 06/11/2021 5:38 AM EDT Respiratory Rate 14 06/11/2021 5:38 AM EDT Oxygen Saturation 99% 11/13/2024 10:55 AM EDT Inhaled Oxygen Concentration - - Weight 95.3 kg (210 lb) 03/28/2018 11:46 AM EST Height 162.6 cm (5' 4 ) 03/28/2018 11:46 AM EST Body Mass Index 36.05 03/28/2018 11:46 AM EST Plan of Treatment Health Maintenance Due Date Last Done Comments Cervical Cancer Screening Combo 1991 Dental Cleaning/Exam 1991 HIV Screening 1991 HPV only / HPV + Pap 1991 Hepatitis C Screening 1991 Pap only testing 1991 HPV Immunization (3 - 3-dose series) 09/11/2007 05/12/2007, 12/11/2006 Annual Preventive Exam 2009 Hep B Infection Screening - Triple Screen 2009 Hepatitis B Immunization (1 of 3 - 19+ 3-dose series) 2010 Tetanus Diphtheria and Pertussis Immunization (1 - Tdap) 2010 Covid-19 Immunization (1 - 2024- season) 2024 Influenza Immunization (#1) 2024 HIB [...] this topic Insurance [employer] [place] [address] [facility] [id number] [place] [address] Care Teams Automotive Drivability Technician Relationship Specialty Start Date End Date Provider, [place] [address] PCP - General Audioprosthologist 06/09/21
--- NOTE | 2025-02-10 13:00 | US_ITS ---
PROCEDURE: US OB /MATERNAL DETAIL CLINICAL INDICATION: 20 week anatomy COMPARISON: No exams were available for comparison FINDINGS: Transabdominal sonographic images of the pelvis were obtained. From her established due date she is 20 weeks 4 days. Single viable intrauterine gestation. Breech position. Placenta: Anteriorplacenta grade 1. There is an average amount of fluid. The cervix appears satisfactory. Closed and measuring 2.9-4.7 cm in length. Complete survey performed and was unremarkable on the submitted images as in PACS. No discrete anomalies identified on survey imaging by technologist. Active fetus. Three-vessel cord with satisfactory umbilical cord insertion. 4- chamber heart noted. Situs, aortic arch, LVOT, RVOT, three-vessel view appear normal. Survey of brain & ventricles Unremarkable. Cerebellum, thalamus, choroid plexus, cisterna magna appear normal. Face and neck survey unremarkable. Profile, nasion, lips and nose appeared normal. Diaphragm and chest views unremarkable. Abdomen: Both kidneys noted and unremarkable. Stomach and bladder noted and satisfactory. Spine: Survey of the spine satisfactory with no anomalies identified nor imaged. Cervical, thoracic, lower spine appear normal. Both arms and legs noted. Amniotic Fluid: Adequate. MVP 4.38 cm Measurements: Average ultrasound age 20weeks 5days. Estimated due date by ultrasound age 0506/25/2025. Estimated weight 361g BPD = 20weeks 5days HC = 21weeks 0 days AC = 20weeks 5days FL = 20weeks 2days Growth Percentile= 43 Heart Rate = 150bpm Cerebellum = 20weeks 2days Humerus = 20weeks 5days HC/AC is 1.19 FL/BPD is 0.67 FL/AC is 0.21 IMPRESSION: 1. Viable fetus in the breech presentation with an anterior placenta grade 1. 2. The fluid is within normal limits with an MVP 4.38 cm. 3. Anatomical scan appears normal. 4. biometry is consistent with a dates. Dictated by: Clarke Covington MD 02/11/2025 10:43 Clarke Covington MD in OV 02/11/2025 10:43
== END 2025-02-10 23:59 | disposition home or self-care (01) ==
PROVIDERS: PCP Family Medicine; Visit Provider Obstetrics & Gynecology
DX: O32.1XX0 Maternal care for breech presentation, not applicable or unspecified (principal); O99.212 Obesity complicating pregnancy, second trimester; O09.292 Supervision of pregnancy with other poor reproductive or obstetric history, second trimester; E66.9 Obesity, unspecified; Z3A.20 20 weeks gestation of pregnancy
CPT/HCPCS: 76811